=== PATIENT | female | born 1965 | race Caucasian/White ===

== ENCOUNTER → 2019-07-30 09:46 | Outpatient (CLI) | payer BC, SELFPAY ==
--- NOTE | ~2019-07-30 | CT_ITS ---
EXAMINATION: CT sinus wo con DATE: 07/30/2019 10:07 INDICATION: Nasal polyps TECHNIQUE: Computed tomography (CT) of the paranasal sinuses was performed without intravenous contra st. The dose-length product (DLP) was 235.77 mGy-cm. Iterative reconstruction was used. COMPARISON: None FINDINGS: The right frontal sinus is hypoplastic. There is otherwise normal development and pneumatiz ation of the paranasal sinuses. A polyp or mucous retention cyst measuring up to 2.5 cm present in th e left maxillary sinus. There is mild mucosal thickening anteriorly in the bilateral maxillary sinuse s as well as the medial right maxillary sinus. There is minimal dependent opacification in the right sphenoid sinus. The ethmoidal air cells are partially opacified. There is minimal opacification later ally in the left frontal sinus. The left sphenoid sinus is well opacified. The mastoid air cells are clear. There is partial opacification of the left infundibulum. Visualized soft tissues are unremarka ble. IMPRESSION: 1. Sinus disease as detailed above. Reviewed, dictated and finalized at location A. [employer]
== END ==
PROVIDERS: PCP Family Medicine; Visit Provider Otolaryngology
DX: J33.9 Nasal polyp, unspecified (principal)
CPT/HCPCS: 70486